=== PATIENT | male | born 1955 | race Caucasian/White ===

== ENCOUNTER 2017-06-02 13:31 | Inpatient (IN) | payer OTHER ==
[~2017-06-02] VITALS: Ht 166.3 cm; Wt 75.0 kg
--- NOTE | ~2017-06-02 | DS ---
[place], [place] DISCHARGE SUMMARY NAME: LEONCIO CHATMAN UNIT #: [id number] ROOM: 314 DOCTOR: KIMBERLY DAILY MD BIRTHDATE: [birth year] DOS: 06/09/2017 CHIEF COMPLAINT: "I need to get my medicines adjusted." HISTORY OF PRESENT ILLNESS: This is a 62-year-old white male who is a patient of the [facility]. The patient was sent here by Dr. Waller. Patient was seen by his outpatient psychiatrist on the date of admission and was voicing extreme depression with suicidal ideation and a plan to either drown himself in his bath water, hang himself or overdose. The patient has been very despondent over the last several weeks. He does not feel that his current medication regimen of Zoloft and Seroquel are effective. The patient was admitted then to rule out organic factors, to stabilize on medication, returning to the least restrictive environment when stable. PAST MEDICAL HISTORY: Remarkable for polysubstance abuse, COPD, diverticulosis, and polyneuropathy. SUMMARY OF HOSPITAL COURSE: The patient was admitted to the unit where his Zoloft and Seroquel were discontinued due to ineffectiveness. He was started on Remeron 15 mg at bedtime and Invega. He did tolerate this well and the Invega was gradually increased from 6-9 and then to 12 mg a day. He did also complain of consistent anxiety throughout the day and did like the Ativan that was given to him; however, he was redirected that this was an addicting substance and given his addictive personality, we substituted Vistaril 50 mg every 6 hours with good effect. The Remeron was gradually increased to 30 mg at bedtime to further combat the depressive symptomatology. He had improved sufficiently by the end of his stay to be able to be discharged home. We did discuss the possibility of a rehab stint due to his relapse on crack cocaine as well as possible [facility]. He will follow up with these organizations post-discharge. MENTAL STATUS AT DISCHARGE: The patient is alert and oriented. Mood does seem to be trending towards euthymia. Affect is appropriate. There is no hypomania or lucero. There are no overt auditory or visual hallucinations. No delusions, no paranoia. Short, intermediate, and long-term memory for the most part are intact. FINAL DIAGNOSES: Schizoaffective disorder and polysubstance abuse. PLAN: His prescriptions have been e-scribed to [facility] and he will have followup in the community as mentioned above. [place], [place] DISCHARGE SUMMARY NAME: LEONCIO CHATMAN UNIT #: [id number] ROOM: [facility] DOCTOR: KIMBERLY DAILY MD BIRTHDATE: [birth year] KIMBERLY DAILY MD CM:DISCHARG [id number] KIMBERLY DAILY MD 06/09/17 1019 interface
--- NOTE | ~2017-06-02 | PR ---
[place], [place] PROGRESS NOTE NAME: LEONCIO CHATMAN UNIT #: [id number] ROOM: 312 DOCTOR: KIMBERLY DAILY MD BIRTHDATE: [birth year] DOS: 06/04/2017 CHIEF COMPLAINT: "I still need my meds adjusted, but thank you for coming to see me." SUMMARY OF THE VISIT: The patient was interviewed as he rested in bed. He reported that he was not sleeping, but was just lying there. Nurses report some sexually inappropriate and sexual comments being made by him, he requesting that they kiss him, etc. He remains intrusive and labile. He does seem to be tolerating the Invega well and I see no extrapyramidal symptoms, tardive dyskinesia, sedation or somnolence. MENTAL STATUS: He is alert and oriented. Mood does still seem to be labile. Affect still is inappropriate. There is still lucero seen. There is no gross psychosis noted. Memory is intact. PLAN: I will load with Invega Sustenna 234 mg IM today. Plan a secondary loading dose of 156 mg in a few days, engage in individual and adam milieu activity, returning to the least restrictive environment when stable. KIMBERLY DAILY MD CM:PNTRANS [id number] KIMBERLY DAILY MD 06/05/17 0038 interface
--- NOTE | ~2017-06-02 | PR ---
[place], [place] PROGRESS NOTE NAME: LEONCIO CHATMAN UNIT #: [id number] ROOM: 312 DOCTOR: KIMBERLY YU MD BIRTHDATE: [birth year] DOS: 06/05/2017 CHIEF COMPLAINT: "Good morning, who are you." SUMMARY OF THE VISIT: The patient was interviewed in his room. He was resting in bed, but was awake. He engaged in conversation. Despite meeting me for every day since he has been in the hospital, he looked at me and asked me who I was. When I did state that I was Dr. Yu, he nodded in agreement, stood up and stated he needed to use the restroom. He voiced no other complaints other than stating he still feels that his meds need adjusted. He was rather vague about this. He does seem to be rather dismissive and on edge. MENTAL STATUS: He is alert and oriented with some time gaps. Mood does still seem to be labile. Affect still seems to be inappropriate at times. There are no auditory or visual hallucinations or paranoia noted. Memory for the most part is intact. PLAN: I did want to load him with Invega Sustenna; however, it is on back order with the pharmacy. Hopefully, this will be available later today. Meanwhile, I will increase his oral Invega from 6 mg in the morning to 9 mg in the morning. Continue to engage in individual and adam milieu activity with the plan to return to the least restrictive environment when psychiatrically stable. KIMBERLY YU MD CM:PNTRANS KIMBERLY YU MD 06/05/1746 interface
--- NOTE | ~2017-06-02 | EKG ---
[place], [place] ELECTROCARDIOGRAM REPORT NAME: LEONCIO CHATMAN UNIT #: [id number] ROOM: 312 DOCTOR: MAUREEN BAEZ,RIANA BIRTHDATE: [birth year] DOS: 06/03/2017 TIME: 1450 hours. IMPRESSION: 1. Sinus rhythm. 2. Inferior ST elevation, consider acute injury. 3. Normal QT interval. RIANA REDDY MD CM:EKGRPT:ELECTROCARDIOGRAM REPORT [phone] RIANA REDDY MD
--- NOTE | ~2017-06-02 | PR ---
[place], [place] PROGRESS NOTE NAME: LEONCIO CHATMAN UNIT #: [id number] ROOM: 312 DOCTOR: KIMBERLY DAILY MD BIRTHDATE: [birth year] DOS: 06/06/2017 CHIEF COMPLAINT: "I am feeling a little better, but I'm not sleeping well." SUMMARY OF THE VISIT: The patient was interviewed as he sat in the quiet room and he was getting his vital signs taken by the adam milieu staff. He engaged in superficial conversation. He does report that he is feeling somewhat better. He is tolerating the Invega well and feels that this has helped stabilize his mood. He still reports poor sleep with difficulty falling asleep and sleep continuity disturbance and states he is up on the hour. He notes no other issues. MENTAL STATUS: He is alert and oriented with some time gaps. Mood does seem to be more euthymic. Affect more appropriate. There are no symptoms of hypomania or lucero. There are no overt auditory or visual hallucinations. No delusions, no paranoia. Short, intermediate, and long-term memory for the most part are intact. PLAN: I will go ahead and increase his Remeron from 15 mg at bedtime to 22.5 mg at bedtime to see if this is a more productive dose to aid sleep and stabilize mood. Continue to engage in individual and adam milieu activity, returning home or to the least restrictive environment when psychiatrically stable. KIMBERLY DAILY MD CM:PNTRANS 7 KIMBERLY DAILY MD 06/06/17 0858 interface
--- NOTE | ~2017-06-02 | WRIGHTHP ---
[place], [place] PATIENT HISTORY AND PHYSICAL EXAM NAME: LEONCIO CHATMAN UNIT #: [id number] ROOM: 312 DOCTOR: KIMBERLY DAILY MD BIRTHDATE: [birth year] DOS: 06/03/2017 CHIEF COMPLAINT: "I needed to get my medicines adjusted." HISTORY OF PRESENT ILLNESS: This is a 62-year-old white male who is a patient at the [facility]. He is a patient specifically of ____. The patient was seen by ____ on the date of admission and was voicing extreme depression with suicidal ideation with a plan to either drown himself in his bath water, hang himself or overdose. The patient reports that he has been feeling very despondent and very much irritable and on edge. He does not feel that his current psychotropic regimen of Zoloft and Seroquel have been effective. ____ feeling that the patient represented a substantial risk of harm to self, did send him directly to the Emergency Room at [facility] to be evaluated upon which time the Emergency Room doctor concurred and the patient was admitted to the psychiatric unit for further evaluation and stabilization. PAST MEDICAL HISTORY: Remarkable for some polysubstance abuse, COPD, diverticulosis, and polyneuropathy. MENTAL STATUS: The patient is alert and oriented. Mood does seem to be depressed with anxious and irritable overtones. He reports he feels on edge and irritable. He denies hallucinations or delusions, although staff report, he has mentioned to them that he has multiple personality. Memory for the most part is intact. DIAGNOSIS: Schizoaffective disorder. PLAN: I have already discontinued his Zoloft and Seroquel in lieu of Remeron and Invega. We will check a gabapentin level in the a.m. Engage in individual and adam milieu activity with the plan to return home then when psychiatrically stable. KMIBERLY DAILY MD CM:HISPHYS:PATIENT HISTORY AND PHYSICAL EXAMINATION [id number] KIMBERLY DAILY MD 06/03/17 1233 interface
--- NOTE | ~2017-06-02 | EKG ---
[place], [place] ELECTROCARDIOGRAM REPORT NAME: LEONCIO CHATMAN UNIT #: [id number] ROOM: 312 DOCTOR: MAUREEN BAEZ,RIANA BIRTHDATE: [birth year] DOS: 06/03/2017 TIME: 1724. IMPRESSION: 1. Sinus rhythm. 2. Normal QT interval. 3. Nondiagnostic ST elevation in the inferior and the anterior leads. RIANA REDDY MD CM:EKGRPT:ELECTROCARDIOGRAM REPORT [id number] RIANA REDDY MD
--- NOTE | ~2017-06-02 | EKG ---
[place], [place] ELECTROCARDIOGRAM REPORT NAME: LEONCIO CHATMAN UNIT #: [id number] ROOM: 312 DOCTOR: MAUREEN BAEZ,RIANA BIRTHDATE: [birth year] DOS: 06/03/2017 TIME: 2120 IMPRESSION: 1. Sinus rhythm. 2. Normal QT interval. 3. No acute ST-T changes. RIANA REDDY MD CM:EKGRPT:ELECTROCARDIOGRAM REPORT [phone] RIANA REDDY MD
[~2017-06-02 13:31] MED LIST: ABILIFY30 MG; AMITIZA24 MCG PO; BENZTROPINE ME0.5 MG PO; CEFDINIR300 MG PO; CILOXAN 5 ML5 M1 OT; CIPRODEX 0.3%-7.5 M1 OT; CITALOPRAM40 MG PO; HALOPERIDOL5 MG PO; HYDROCODONE BIT1 T20 PO; LEVOFLOXACIN500 MG PO; PERCOCET 325 MG1 TA5 PO; QUETIAPINE FUM400 M1 PO; SEROQUEL XR300 MG PO; SERTRALINE HYD100 MG PO; ULTRAM50 MG PO; VERAPAMIL HCL40 MG PO; ZOFRAN4 MG PO
[2017-06-02 13:48] VITALS: BP 133/71
[2017-06-02 14:39] LABS: BASO % 0.2 % (0.0-1.0); EOS # 0.1 10*3/uL (0.0-0.4); EOS % 1.8 % (1.0-4.0); HEMATOCRIT 43.7 % (42.0-52.0); HEMOGLOBIN 14.8 g/dl (14.0-18.0); LYMPH # 1.7 10*3/uL (1.3-4.4); LYMPH % 31.6 % (27.0-41.0); MEAN CELL VOLUME 83.6 fl (80.0-94.0); MEAN CORPUSCULAR HGB 28.3 pg (27.0-31.0); MEAN CORPUSCULAR HGB CONC 33.9 g/dl (33.0-37.0); MEAN PLATELET VOLUME 9.5 fl (9.6-12.3); MONO # 0.5 10*3/uL (0.1-1.0); MONO % 8.4 % (3.0-9.0); NEUT # 3.2 10*3/uL (2.3-7.9); NEUT % 57.6 % (47.0-73.0); PLATELET COUNT AUTOMATED 223 10*3/uL (130-400); RED BLOOD COUNT 5.23 10*6/uL (4.50-5.90); RED CELL DISTRI WIDTH 14.6 % (0-14.5); WHITE BLOOD COUNT 5.5 10*3/uL (4.8-10.8)
[2017-06-02 14:57] LABS: ALBUMIN 3.9 gm/dl (3.1-4.5); ALKALINE PHOSPHATASE 105 U/L (45-117); BUN 9 mg/dl (7-24); CHLORIDE 106 mmol/L (98-107); CREATININE 0.93 mg/dL (0.70-1.30); POTASSIUM 4.2 mmol/L (3.5-5.1); SGOT/AST 34 IU/L (3-35); SGPT/ALT 39 U/L (12-78); SODIUM 138 mmol/L (136-145); TOTAL PROTEIN 6.9 gm/dL (6.4-8.2)
[2017-06-02 15:00] LABS: ACETAMINOPHEN (TYLENOL) < 2.0 ug/ml (10-30)
[2017-06-02 15:07] LABS: ETHYL ALCOHOL < 3.0 mg/dl (<3)
[2017-06-02 16:27] LABS: BILIRUBIN NEGATIVE (NEGATIVE); BLOOD NEGATIVE (NEGATIVE); CLARITY CLEAR (CLEAR); COLOR YELLOW (YELLOW); GLUCOSE NEGATIVE (NEGATIVE); KETONE NEGATIVE (NEGATIVE); LEUKO ESTERASE NEGATIVE (NEGATIVE); NITRITE NEGATIVE (NEGATIVE); SPECIFIC GRAVITY <= 1.005 (1.005-1.030); UROBILINOGEN 0.2 E.U./dl (0.2-1.0)
[2017-06-02 16:38] LABS: BACTERIA TRACE; RBC 0-2 rbc/hpf (0-2); WBC 0-2 wbc/hpf (0-5)
[2017-06-02 17:41] LABS: URINE AMPHETAMINES < 1000 (1000ng/ml); URINE BARBITURATES < 200 (200ng/ml); URINE BENZODIAZEPINES < 200 (200ng/ml); URINE CANNABINOIDS (THC) > 50 (50ng/ml); URINE COCAINE > 300 (300ng/ml); URINE METHADONE < 300 (300ng/ml); URINE OPIATES < 300 (300ng/ml); URINE PHENCYCLIDINE < 25 (25ng/ml)
[2017-06-02] MEDS ORDERED: TRAZADONE HYDR100 MG PO ×2 (18:14)
[2017-06-02] MEDS ORDERED: GABAPENTIN800 MG PO (18:15)
[2017-06-02] MEDS ORDERED: NEURONTIN800 MG PO (18:15)
[2017-06-02] MEDS ORDERED: SPIRIVA -- 3018 MCG INH (18:16)
[2017-06-02] MEDS ORDERED: ZYPREXA20 M1 PO (18:16)
[2017-06-02] MEDS ORDERED: ADVAIR 250/501 EA INH (18:16)
[2017-06-02 18:28] VITALS: BP 132/72
[2017-06-02 20:00] VITALS: BP 132/72
[2017-06-03 00:56] VITALS: BP 132/72
[2017-06-03 07:58] VITALS: BP 122/67
[2017-06-03 09:21] LABS: ALBUMIN 3.5 gm/dl (3.1-4.5); ALKALINE PHOSPHATASE 87 U/L (45-117); BUN 12 mg/dl (7-24); CHLORIDE 108 mmol/L (98-107); CHOLESTEROL 138 mg/dL (<200); CREATININE 1.09 mg/dL (0.70-1.30); HDL CHOLESTEROL 28 mg/dl (40-60); LDL CHOLESTEROL 91 mg/dL (9-159); POTASSIUM 3.8 mmol/L (3.5-5.1); SGOT/AST 25 IU/L (3-35); SGPT/ALT 34 U/L (12-78); SODIUM 140 mmol/L (136-145); TOTAL PROTEIN 6.3 gm/dL (6.4-8.2); TRIGLYCERIDES 94 mg/dl (<150); VLDL CHOLESTEROL 19 mg/dL (6-40)
[2017-06-03 10:39] LABS: VITAMIN D, 25-HYDROXY 19.1 ng/mL (30-100)
[2017-06-03 20:09] VITALS: BP 114/62
[2017-06-04 08:01] VITALS: BP 125/72
[2017-06-04 20:00] VITALS: BP 131/64
[2017-06-05 08:01] VITALS: BP 112/70
[2017-06-05 19:53] VITALS: BP 138/82
[2017-06-06 08:44] VITALS: BP 135/80
[2017-06-06 20:00] VITALS: BP 131/57
[2017-06-07 07:47] VITALS: BP 154/73
[2017-06-07 09:08] VITALS: BP 154/73
[2017-06-07 19:05] LABS: NEURONTIN (GABAPENTIN) 10.7 ug/mL (4.0-16.0)
[2017-06-07 20:00] VITALS: BP 138/82
[2017-06-08 07:58] VITALS: BP 126/79
[2017-06-08 20:00] VITALS: BP 101/52
[2017-06-08 20:33] VITALS: BP 101/52
[2017-06-09 08:01] VITALS: BP 118/80
[2017-06-09] MEDS ORDERED: PALIPERIDONE ER6 MG PO (09:08)
[2017-06-09] MEDS ORDERED: MIRTAZAPINE30 M2 PO (09:08)
[2017-06-09] MEDS ORDERED: ATARAX,VISTARIL50 MG PO (09:09)
[2017-06-09] MEDS ORDERED: NICODERM T (14:44)
[2017-06-09] MEDS ORDERED: NICOTINE PATCH1 EAC2 TD (14:44)
== END 2017-06-09 16:05 | disposition home or self-care (01) | DRG 885 ==
LOC: ED 13:31 → 3N 16:28 → EDHOLD 16:28 → 3N 17:54
PROVIDERS: Nurse Practitioner Family; Psychiatry & Neurology Psychiatry
DX: F25.9 Schizoaffective disorder, unspecified (principal); R45.851 Suicidal ideations; G62.9 Polyneuropathy, unspecified; F31.30 Bipolar disorder, current episode depressed, mild or moderate severity, unspecified; Z79.899 Other long term (current) drug therapy; K57.90 Diverticulosis of intestine, part unspecified, without perforation or abscess without bleeding; Z96.651 Presence of right artificial knee joint; F14.10 Cocaine abuse, uncomplicated; F12.10 Cannabis abuse, uncomplicated; F10.10 Alcohol abuse, uncomplicated; Y90.9 Presence of alcohol in blood, level not specified; F41.9 Anxiety disorder, unspecified; G47.00 Insomnia, unspecified; K59.00 Constipation, unspecified; J41.8 Mixed simple and mucopurulent chronic bronchitis; Z72.0 Tobacco use; Z71.6 Tobacco abuse counseling; Z84.89 Family history of other specified conditions; Z82.49 Family history of ischemic heart disease and other diseases of the circulatory system; Z91.018 Allergy to other foods